=== PATIENT | female | born 1955 | race Caucasian/White ===

== ENCOUNTER → 2017-05-18 | Outpatient (CLI) | payer BC ==
--- NOTE | 2017-05-19 16:08 | MAMMOGRAPHY REPORT ---
BILATERAL DIGITAL SCREENING MAMMOGRAM TOMOSYNTHESIS WITH CAD: 05/18/2017 CLINICAL HISTORY: Routine screening. Patient has no complaints. TECHNIQUE: Breast tomosynthesis in addition to standard 2D mammography was performed. Current study was also evaluated with a Computer Aided Detection (CAD) system. COMPARISON: Comparison is made to exams dated: 05/15/2016 mammogram, 06/14/2013 mammogram, 10/15/2011 m ammogram, 10/14/2010 mammogram, 10/11/2009 mammogram - [facility], and 01/05/2007. BREAST COMPOSITION: The tissue of both breasts is heterogeneously dense, which may obscure small mas ses. FINDINGS: The parenchymal pattern is unchanged. No developing mass, architectural distortion or clus ter of suspicious microcalcifications is seen in either breast. IMPRESSION: ACR BI-RADS CATEGORY 2: BENIGN There is no mammographic evidence of malignancy. A 1 year screening mammogram is recommended. The pa tient will receive written notification of the results. Approximately 10% of breast cancers are not detected with mammography. A negative mammographic report should not delay biopsy if a clinically suggestive mass is present. Radha Mark M.D. ay/:05/18/2017 16:42:16 Turbine Inspector: Zoya BENTON(Hanna)(Hany)(BD), [facility] letter sent: Normal 1/2 BI-RADS Code: ACR BI-RADS Category 2: Benign
== END | disposition home or self-care (01) ==
LOC: C.MAMM 16:22
PROVIDERS: ATTEND Family Medicine
DX: Z12.31 Encounter for screening mammogram for malignant neoplasm of breast (principal)

== ENCOUNTER → 2017-09-24 | Outpatient (CLI) | payer BC, OTHER ==
--- NOTE | 2017-09-24 09:49 | DIAGNOSTIC IMAGING REPORT ---
R KNEE 4 OR MORE HISTORY: 62 years-old Female RIGHT KNEE PAIN acute right-sided knee pain without reported trauma COMPARISON: None available TECHNIQUE: Upright AP view of the bilateral knees with sunrise, AP axial and crosstable lateral views of the right knee. FINDINGS: There is mild medial compartment arthritis bilaterally. 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 Mild patellofemoral osteoarthritis is also noted on the right along with small right joint effusion. No acute fracture or subluxation identified. No intra-articular loose body or significant soft tissue swelling. IMPRESSION: 1. Small joint effusion without acute fracture or dislocation. 2. Mild medial compartment and patellofemoral osteoarthritis. 3. 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 The above report was generated using voice recognition software. It may contain grammatical, syntax or spelling errors. Electronically signed by: Akira Forde M.D. 09/24/2017 9:47 AM Dictated Date/Time: 09/24/2017 9:45 AM
== END | disposition home or self-care (01) ==
LOC: C.RDSM 10:45
PROVIDERS: ATTEND Family Medicine
DX: M17.11 Unilateral primary osteoarthritis, right knee (principal)